=== PATIENT | male | born 1980 | race Caucasian/White ===

== ENCOUNTER 2017-02-11 09:13 | Emergency (ER) | payer BC, OTHER ==
[2017-02-11 09:28] VITALS: BP 148/105
[2017-02-11] MEDS ORDERED: Sodium Chloride 0.9% 1,000 ML IV SCH (09:45)
[2017-02-11] MEDS ORDERED: Ondansetron 4 MG/2 ML SDV IVPUSH ONE (09:45)
[2017-02-11] MEDS ORDERED: Diatrizoate Meglumine/Diatrizoate Sodium 37% 120 ML Bottle PO ONE (09:51)
[2017-02-11] MEDS ORDERED: Iopamidol 612 MG/ML 150 ML Bottle IVPUSH ONE (09:51)
[2017-02-11] MEDS: Sodium Chloride 0.9% 10 ML Syringe FLUSH ONE (11:03)
[2017-02-11] MEDS ORDERED: Sodium Chloride 0.9% 100 ML IV SCH (11:15)
--- NOTE | 2017-02-11 12:00 | EDM.PDOC ---
ED HPI GI/ABDOMINAL - General Chief Complaint: Abdominal Pain Stated Complaint: ABDOMINAL PAIN Time Seen by Provider: 02/11/17 09:28 Source of Information: Reports: Patient, RN notes reviewed History Limitations: Reports: No limitations - History of Present Illness INITIAL COMMENTS - FREE TEXT/NARRATIVE: The patient states that he developed crampy lower abdominal pain Thursday evening , 02/09/2017. It has been waxing and waning. He has not identified any modifiers. He has had nausea and dry heaves. He has had loose bowel movements , but not diarrhea per se. No urinary symptoms. He reports a subjective fever. Last night. No recent chest pain or dyspnea. No prior similar symptoms. The patient denies any recent history of spoiled food, sick contacts, antibiotic use, or recent travel. - Related Data Allergies/ADRs: Allergies Allergy/AdvReac Type Severity Reaction Status Date / Time No Known Allergies Allergy Verified 02/11/17 09:25 Home Meds: Home Meds Losartan [Cozaar] 100 mg PO DAILY 11/09/14 [History] Allopurinol [Zyloprim] 100 mg PO BID 02/11/17 [History] Diclofenac Sodium [IJD: Diclofenac Sodium] 1 tab PO BID 02/11/17 [History] Ondansetron [Zofran ODT] 4 mg PO Q8H PRN #10 tab.dis 02/11/17 [Rx] Tacrolimus 02/11/17 [History] Past Medical History Cardiovascular History: Reports: High cholesterol, Hypertension Respiratory History: Reports: Sleep apnea (on nightly CPAP) Genitourinary History: Reports: Other (see below) (Nephrotic syndrome) Musculoskeletal History: Reports: Arthritis, Gout (suspected, not confirmed) - Past Surgical History Male Surgical History: Reports: Other (see below) (Kidney biopsy) Social & Family History - Tobacco Use Smoking Status *Q: Never Smoker Second Hand Smoke Exposure: No - Alcohol Use Alcohol Use History: No - Recreational Drug Use Recreational Drug Use: No - Living Situation & Occupation Living situation: Reports: , with spouse, with family (2 kids) Occupation: employed (blending operator) ED ROS GENERAL - Review of Systems Review Of Systems: See Below Constitutional: Reports: no symptoms HEENT: Reports: No symptoms Respiratory: Reports: No Symptoms Cardiovascular: Reports: No symptoms Endocrine: Reports: no symptoms GI/Abdominal: Reports: No symptoms : Reports: no symptoms Musculoskeletal: Reports: no symptoms Skin: Reports: no symptoms Neurological: Reports: No Symptoms Psychiatric: Reports: No symptoms Hematologic/Lymphatic: Reports: no symptoms Immunologic: Reports: no symptoms ED EXAM, GI/ABD - Physical Exam Exam: See Below Exam Limited By: No limitations General Appearance: alert, WD/WN, no apparent distress Eyes: bilateral: normal appearance, EOMI Ears: normal external exam, hearing grossly normal Nose: normal inspection, no blood Throat/Mouth: Normal inspection, Normal lips, Normal voice, No airway compromise Head: atraumatic, normocephalic Neck: normal inspection, full range of motion Respiratory/Chest: no respiratory distress, lungs clear, normal breath sounds, no accessory muscle use, chest non-tender Cardiovascular: normal peripheral pulses, regular rate, rhythm, no edema, no gallop, no JVD, no murmur, no rub GI/Abdominal: normal bowel sounds, soft, no organomegaly, no distention, no abnormal bruit, no mass, tenderness (Mild, to the lower abdomen. Essentially nontender elsewhere.) Back Exam: normal inspection, full range of motion. No: CVA tenderness (L), CVA tenderness (R) Extremities: normal inspection, normal range of motion, non-tender, normal capillary refill, no pedal edema Neurological: alert, oriented, normal cognition, no motor/sensory deficits Psychiatric: normal affect Skin Exam: Warm, Dry, Intact, Normal color, No rash Lymphatic: no adenopathy Course - Vital Signs Last Recorded V/S: Last Vital Signs Temp 36.4 C 02/11/17 09:25 Pulse 78 02/11/17 09:25 Resp 15 02/11/17 09:25 BP 148/105 H 02/11/17 09:25 Pulse Ox 95 02/11/17 09:25 - Orders/Labs/Meds Orders: Active Orders 24 hr Category Date Time Status Abdomen Pelvis w Cont [CT] Stat Exams 02/11/17 09:45 Taken Labs: Laboratory Tests 02/11/17 02/11/17 02/11/17 Range/Units 09:50 09:50 10:57 WBC 6.81 (4.23-9.07) K/mm3 RBC 5.35 (4.63-6.08) M/mm3 Hgb 15.8 (13.7-17.5) gm/L Hct 45.5 (40.1-51.0) % MCV 85.0 (79.0-92.2) fl MCH 29.5 (25.7-32.2) pg MCHC 34.7 (32.2-35.5) g/dl RDW Std Deviation 45.4 H (35.1-43.9) fL Plt Count 262 (163-337) K/mm3 MPV 10.2 (9.4-12.3) fl Neutrophils % (Manual) 56 (40-60) % Band Neutrophils % 0 (0-10) % Lymphocytes % (Manual) 37 (20-40) % Atypical Lymphs % 0 % Monocytes % (Manual) 6 (2-10) % Eosinophils % (Manual) 1 (0.8-7.0) % Basophils % (Manual) 0 L (0.2-1.2) Platelet Estimate Adequate RBC Morph Comment Normal Sodium 140 (136-145) mEq/L Potassium 3.8 (3.5-5.1) mEq/L Chloride 105 (98-107) mEq/L Carbon Dioxide 26 (21-32) mEq/L Anion Gap 12.8 (5-15) BUN 13 (7-18) mg/dL Creatinine 1.0 (0.7-1.3) mg/dL Est Cr Clr Drug Dosing 104.43 mL/min Estimated GFR (MDRD) > 60 (>60) mL/min BUN/Creatinine Ratio 13.0 L (14-18) Glucose 95 (74-106) mg/dL Calcium 8.5 (8.5-10.1) mg/dL Total Bilirubin 0.4 (0.2-1.0) mg/dL AST 24 (15-37) U/L ALT 38 (16-63) U/L Alkaline Phosphatase 82 (46-116) U/L Total Protein 6.9 (6.4-8.2) g/dl Albumin 2.9 L (3.4-5.0) g/dl Globulin 4.0 gm/dL Albumin/Globulin Ratio 0.7 L (1-2) Lipase 92 (73-393) U/L Urine Color Yellow (Yellow) Urine Appearance Clear (Clear) Urine pH 6.0 (5.0-8.0) Ur Specific [place] > or = 1.030 (1.005-1.030) Urine Protein 3+ H (Negative) Urine Glucose (UA) Negative (Negative) Urine Ketones Negative (Negative) Urine Occult Blood Trace-lysed H (Negative) Urine Nitrite Negative (Negative) Urine Bilirubin Negative (Negative) Urine Urobilinogen 0.2 (0.2-1.0) Ur Leukocyte Esterase Negative (Negative) Urine RBC Not seen (0-5) /hpf Urine WBC Not seen (0-5) /hpf Ur Epithelial Cells Not seen (0-5) /hpf Urine Bacteria Not seen (FEW) /hpf Urine Mucus Not seen (FEW) /hpf Meds: Medications Discontinued Medications Generic Name Dose Route Start Last Admin Trade Name Freq PRN Reason Stop Dose Admin Diatrizoate Meglum/Diatrizoate Sod 120 ml 02/11/17 09:51 02/11/17 11:03 Gastrografin 37% PO 02/11/17 09:52 90 ml ONETIME ONE Administration Sodium Chloride 1,000 mls @ 150 mls/hr 02/11/17 09:45 02/11/17 10:00 Normal Saline IV 150 mls/hr ASDIRECTED TAYLOR Administration Sodium Chloride 100 mls @ 60 mls/hr 02/11/17 11:15 02/11/17 11:04 Normal Saline IV 60 mls/hr ASDIRECTED TAYLOR Administration Iopamidol 150 ml 02/11/17 09:51 02/11/17 11:03 Isovue-300 (61%) IVPUSH 02/11/17 09:52 100 ml ONETIME ONE Administration Ondansetron HCl 4 mg 02/11/17 09:45 02/11/17 10:00 Zofran IVPUSH 02/11/17 09:46 4 mg ONETIME ONE Administration Sodium Chloride 10 ml 02/11/17 09:51 02/11/17 11:03 Saline Flush FLUSH 02/11/17 09:52 10 ml ONETIME ONE Administration - Radiology Interpretation Free Text/Narrative:: CT of the abdomen and pelvis with oral and IV contrast is read by [facility] as "Negative examination". - Re-Assessments/Exams Free Text/Narrative Re-Assessment/Exam: 02/11/17 11:59 Test results discussed with the patient. Today's workup is unremarkable, and does not explain the cause of the patient's symptoms. I suspect the patient is suffering from viral gastroenteritis. I will e-prescribe oral Zofran, and if his symptoms do not improve within the next few days, I would like him to followup with Dr. Yanes for possible EGD/colonoscopy. 02/11/17 12:21 The patient is requesting a note for work, to be off for the next several days. Departure - Departure Time of Disposition: 12:00 Disposition: Home, Self-Care 01 Condition: fair Clinical Impression: Abdominal pain of unknown etiology, Nausea Prescriptions: Ondansetron [Zofran ODT] 4 mg PO Q8H PRN #10 tab.dis PRN Reason: Nausea/Vomiting Instructions: Abdominal Pain, Adult, [id number] Referrals: PCP,Not In Area [Primary Care Provider] - Castro Yanes MD [Physician] - Forms: ED Department Discharge, Return to Work/School Form Additional Instructions: You were seen in the emergency room today for crampy lower abdominal pain, nausea, and loose bowel movements. Workup in the ER included blood work, a urinalysis, and a CT scan of your abdomen and pelvis. Your entire workup is unremarkable, and does not explain the cause of your symptoms. We suspect that you are suffering from a viral illness, although we cannot prove it. Dissolve one tablet of the anti-nausea medicine Zofran on your tongue up to every 8 hours, as needed for nausea/vomiting. We recommend that you take a bland diet, such as oatmeal, rice, bananas, applesauce, etc. Stay well hydrated. If your symptoms persist past a few days, please followup with the Surgeon Dr. Castro Yanes for further evaluation, that may include a EGD and/or colonoscopy. If any other problems, please do not hesitate to return to the ER. - My Orders Last 24 Hours: My Active Orders 02/11/17 09:45 Abdomen Pelvis w Cont [CT] Stat - Assessment/Plan Last 24 Hours: My Active Orders 02/11/17 09:45 Abdomen Pelvis w Cont [CT] Stat
--- NOTE | 2017-02-12 10:41 | CT ---
CT abdomen and pelvis Technique: Multiple axial sections through the abdomen were obtained. Intravenous and oral contrast was utilized. Delayed images were also obtained through the bladder. Comparison: No previous study. Findings: Visualized lung bases are clear. Liver shows no focal parenchymal abnormality. Gallbladder shows no calcified gallstones. Spleen appears within normal limits. Soft tissue nodule off the anterior spleen is seen compatible with accessory splenic tissue. Adrenal glands show no nodule. Pancreas is within normal limits. Kidneys show contrast enhancement without hydronephrosis or mass. Aorta shows no aneurysmal dilatation. No retroperitoneal adenopathy or mesenteric abnormalities are seen. Appendix is seen which appears normal. No pelvic mass or adenopathy is seen. Delayed images were obtained which show contrast within the distal ureters and within the bladder. No bowel dilatation is seen. No free fluid or inflammatory change is seen. Impression: 1. Nothing acute identified on CT study of the abdomen and pelvis. Agree with preliminary report issued by [employer] (preliminary [facility] report dictated on 02/11/17, 12:17 PM Central Time) Diagnostic code #1
== END 2017-02-11 12:13 | disposition home or self-care (01) ==
LOC: JD.ED 09:13
DX: R10.30 Lower abdominal pain, unspecified (principal); R11.0 Nausea; E78.00 Pure hypercholesterolemia, unspecified; I10 Essential (primary) hypertension; Z79.899 Other long term (current) drug therapy
CPT/HCPCS: 36415; 74177; 80053; 81001; 83690; 85025; 96361; 96374; 99284; J2405; J7030; J7040; J7050; Q9963; Q9967